=== PATIENT | female | born 1985 | race Caucasian/White ===

== ENCOUNTER 2024-09-13 16:14 | Emergency (ER) | payer OTHER ==
[~2024-09-13] VITALS: Ht 160 cm; Wt 93.6 kg
[~2024-09-13 16:14] MED LIST: METF-1211 PO
[2024-09-13 16:41] LABS: GLUCOMETER DEV NAME(LOC) ER.7; GLUCOSE,POINT OF CARE 116 MG/DL (70-110)
[2024-09-13] MEDS: SODIUM CHLORIDE 0.9% 1,000 ML IV ONE (18:08)
[2024-09-13] MEDS: BUPIVACAINE HCL/PF 0.25% 10 ML VIAL IARTIC ONE (18:09)
[2024-09-13] MEDS: MIDAZOLAM HCL 2 MG/2 ML VIAL IVP ONE (18:09)
[2024-09-13] MEDS: LIDOCAINE 1% 10 ML VIAL IARTIC ONE (18:09)
[2024-09-13 18:10] VITALS: TEMP 98; O2SAT 98
[2024-09-13 18:20] LABS: PLATELET COUNT (AUTO) 331 K/uL (150-450); RED BLOOD CELL COUNT(AUTO) 4.47 MIL/uL (4.00-5.20); RED CELL DISTRIBUTION WIDTH 13.7 % (11.5-14.5); WHITE BLOOD COUNT (AUTO) 21.7 K/uL (4.5-11.0)
[2024-09-13 18:29] LABS: CALCIUM, TOTAL 8.9 mg/dL (8.8-10.5); CREATININE 0.87 mg/dL (0.60-1.30); GLOMERULAR FILTR. RATE CALC > 60 mL/min (>60); GLUCOSE,RANDOM 159 mg/dL (70-110); SODIUM SERUM 137 mmol/L (136-145); UREA NITROGEN, BLOOD 21 mg/dL (7-18)
[2024-09-13 20:05] VITALS: BP 142/89; PULSE 103; RESP 16; O2SAT 99
[2024-09-13] MEDS ORDERED: TRAM50TA5 PO (20:09)
== END 2024-09-13 20:34 | disposition home or self-care (01) ==
LOC: EMS 16:14
DX: S43.015A Anterior dislocation of left humerus, initial encounter (principal); E11.9 Type 2 diabetes mellitus without complications; W01.0XXA Fall on same level from slipping, tripping and stumbling without subsequent striking against object, initial encounter; Y93.89 Activity, other specified; Y92.89 Other specified places as the place of occurrence of the external cause; Y99.8 Other external cause status
CPT/HCPCS: 99285; 23650; 96374; 96361; 80048; 82962; 84703; 85025; 36415; 73030; J3490 ×2; J1171; J2250; J7030